=== PATIENT | male | born 1980 | race Caucasian/White ===

== ENCOUNTER → 2018-08-16 | Outpatient (CLI) | payer BC ==
[~2018-08-16] MED LIST: GADOBUTROL 10 ML VIAL IVP ONE
== END ==
LOC: FIMAGING 11:57
PROVIDERS: ATTEND Family Medicine
DX: R42 Dizziness and giddiness (principal); R47.89 Other speech disturbances; R93.0 Abnormal findings on diagnostic imaging of skull and head, not elsewhere classified
CPT/HCPCS: A9585

== ENCOUNTER → 2019-04-21 | Outpatient (CLI) | payer OTHER | LOC: CIMAGING 10:47 ==